=== PATIENT | female | born 1975 | race Caucasian/White ===

== ENCOUNTER → 2017-09-23 | Outpatient (CLI) | payer BC ==
--- NOTE | 2017-09-23 15:51 | US ---
EXAMINATION TYPE: US thyroid st tissue head/neck DATE OF EXAM: 09/23/2017 COMPARISON: NONE CLINICAL HISTORY: I48.9 AFIB,E04.9 nontoxic goiter. Neck swelling GLAND SIZE: Right Lobe: 5.1 x 1.6 x 1.8 cm Overall Parenchyma: heterogenous Left Lobe: 5.1 x 1.6 x 1.8 cm Overall Parenchyma: heterogeneous Isthmus Thickness: 0.4 cm NODULES RIGHT: # of nodules measured on right: 0 LEFT: # of nodules measured on left: 0 ISTHMUS: # of nodules measured in the isthmus: 0 Bilateral neck scanned, no evidence of lymphadenopathy. Prominent, heterogeneous gland with no definite nodules seen at this time. IMPRESSION: No sizable nodules are seen. Tissue does appear to be diffusely heterogeneous and enlarged compatible with goiter. Correlate for thyroiditis.
--- NOTE | 2017-09-23 16:57 | ECHOF ---
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 Resting tachycardia (HR>100bpm). This was a technically difficult study with suboptimal views. The left ventricular size is normal. There is mild concentric left ventricular hypertrophy. Overa ll left ventricular systolic function is normal with, an EF between 55 - 60 %. The right ventricle is normal in size and function. The left atrium is normal in size. The right atrium is normal in size. 1.5mg of Definity was utilized for enhancement of images The aortic valve is trileaflet, and appears structurally normal. No aortic stenosis or regurgitation. The mitral valve leaflets are mildly thickened. Mild mitral regurgitation is present. Trace tricuspid regurgitation present. The right ventricular systolic pressure, as measured by Dopp ler, is 10.92mmHg. The pulmonic valve was not well visualized. The aortic root size is normal. There is no pericardial effusion. CONCLUSIONS -------- 1. Atrial fibrillation. 2. Resting tachycardia (HR>100bpm). 3. This was a technically difficult study with suboptimal views. 4. The left ventricular size is normal. 5. There is mild concentric left ventricular hypertrophy. 6. Overall left ventricular systolic function is normal with, an EF between 55 - 60 %. 7. The left atrium is normal in size. 8. Lumason used 9. The aortic valve is trileaflet, and appears structurally normal. No aortic stenosis or regurgitati on. 10. The mitral valve leaflets are mildly thickened. 11. Mild mitral regurgitation is present. 12. Trace tricuspid regurgitation present. 13. The right ventricular systolic pressure, as measured by Doppler, is 10.92mmHg. 14. The pulmonic valve was not well visualized. 15. The aortic root size is normal. 16. There is no pericardial effusion. WIRE THREADER: Tatum Storm RDCS
== END | disposition home or self-care (01) ==
LOC: RADECHMAIN 14:34
PROVIDERS: ATTEND Family Medicine
DX: I08.1 Rheumatic disorders of both mitral and tricuspid valves (principal); I48.91 Unspecified atrial fibrillation; R00.0 Tachycardia, unspecified; E04.9 Nontoxic goiter, unspecified
CPT/HCPCS: 93306; 76536; Q9950

== ENCOUNTER → 2017-10-25 | Outpatient (CLI) | payer BC ==
[2017-10-25 10:46] LABS: HCT 37.4 % (34.0-46.0); HGB 12.7 gm/dL (11.4-16.0); MCH 29.1 pg (25.0-35.0); MCHC 34.1 g/dL (31.0-37.0); MCV 85.2 fL (80.0-100.0); Mean Platelet Volume 6.7; Platelet Count 379 k/uL (150-450); RBC 4.39 m/uL (3.80-5.40); RDW 13.1 % (11.5-15.5); WBC 10.2 k/uL (3.8-10.6)
[2017-10-25 10:52] LABS: Anion Gap 12 mmol/L; Blood Urea Nitrogen 16 mg/dL (7-17); Calcium 9.4 mg/dL (8.4-10.2); Carbon Dioxide 25 mmol/L (22-30); Chloride 104 mmol/L (98-107); Glucose 189 mg/dL (74-99); Potassium 4.4 mmol/L (3.5-5.1); Sodium 141 mmol/L (137-145)
== END | disposition home or self-care (01) ==
LOC: LABWHC1 09:59
PROVIDERS: ATTEND Internal Medicine Clinical Cardiac Electrophysiology
DX: I48.3 Typical atrial flutter (principal); I10 Essential (primary) hypertension
CPT/HCPCS: 36415; 80048; 85027

== ENCOUNTER 2017-11-09 09:35 | Day surgery (SDC) | payer BC ==
[2017-11-09] MEDS: SODIUM CHLORIDE 0.9% 1,000 ML IV SCH (10:12)
[2017-11-09 10:23] LABS: Glucose,Whole Blood 120 mg/dL (75-99)
[2017-11-09] MEDS ORDERED: LIDOCAINE 1% INJ 10MG/ML (20 ML MDV) ONE (10:33)
[2017-11-09] MEDS ORDERED: PROPOFOL 10 MG/ML 20 ML VIAL IV ONE (10:33)
[2017-11-09] MEDS ORDERED: SUCCINYLCHOLINE CHLORIDE 100 MG/5 ML SYR IV ONE (10:33)
[2017-11-09] MEDS ORDERED: fentaNYL (PF) 50 MCG/ML 2 ML AMP ONE (10:33)
[2017-11-09] MEDS ORDERED: PHENYLEPHRINE-0.9% NACL SYG 1 MG/10 ML SYRINGE ONE (10:33)
[2017-11-09] MEDS ORDERED: MIDAZOLAM 2 MG/2 ML VIAL ONE (10:33)
[2017-11-09] MEDS ORDERED: ROCURONIUM BROMIDE 10 MG/ML 10 ML VIAL IV ONE (10:33)
[2017-11-09] MEDS ORDERED: NEOSTIGMINE 1 MG/ML 10 ML VIAL ONE (10:33)
[2017-11-09] MEDS ORDERED: GLYCOPYRROLATE 0.2 MG/ML 2 ML VIAL ONE (10:33)
[2017-11-09] MEDS ORDERED: ISOPROTERENOL 250 MCG/1.25 ML SYR IV ONE (10:33)
[2017-11-09] MEDS ORDERED: LIDOCAINE 2% INJ 20 MG/ML SQ ONE (11:09)
[2017-11-09] MEDS ORDERED: HEPARIN SODIUM (1,000 UNIT/ML) 1,000 UNIT in SODIUM CHLORIDE 0.9% 1,000 ML IRRIGATION ONE (11:23)
[2017-11-09] MEDS ORDERED: ACETAMINOPHEN IV (For NPO) 1,000 MG in EMPTY BAG 1 BAG IVPB ONE (15:08)
[2017-11-09] MEDS ORDERED: HYDROcodone/APAP 5-325MG 1 EACH TAB PO PRN (15:08)
[2017-11-09] MEDS ORDERED: ACETAMINOPHEN TAB 325 MG TAB PO PRN (15:08)
[2017-11-09] MEDS ORDERED: ACETAMINOPHEN IV (For NPO) 1,000 MG/100 ML VIAL IVPB ONE (15:38)
[2017-11-09] MEDS ORDERED: MORPHINE SULFATE/PF 10MG/10ML VL IVP PRN (16:33)
[2017-11-09] MEDS ORDERED: MORPHINE SULFATE 4 MG/ML SYRINGE ONE (16:36)
--- NOTE | 2017-11-09 17:40 | CE ---
CARDIAC ELECTROPHYSIOLOGY REPORT Gladys Matthews is a 42-year-old female patient of Dr. Carmona who was referred for evaluation and management of atrial flutter. She is appropriately anticoagulated. She underwent a diagnostic EP study and radiofrequency ablation of atrial flutter. Patient was brought to the EP lab in a fasting state. Written informed consent was obtained prior to the procedure. The right and left groins were prepped and draped as per protocol. Venous sheaths were placed in the right and left femoral veins, and via these diagnostic and ablation catheters were placed in the right heart. Intracardiac echo catheter was also placed. The coronary sinus catheter was placed, and this showed concentric activation, cycle length of atrial tachycardia 245 milliseconds consistent with atrial flutter. Mapping and ablation catheters were placed in the right atrial isthmus and entrainment mapping confirmed isthmus dependency and counter-clockwise flutter. Three-dimensional electroanatomic mapping was performed. Intracardiac echo was performed. There was no thrombus in the right atrial appendage or the left atrial appendage. The isthmus was identified. The patient had a very short isthmus with thickened myocardium in the area of the tricuspid anulus and again in the eustachian ridge, and a large localized mid eustachian pouch that was quite deep. This was a short isthmus. RF ablation was performed and apparently a complete line of block was made. Atrial flutter was terminated. Complete block was not achieved. This was a very difficult ablation, and despite ablation within the pouch, which was difficult to enter using the reverse loop technique, poor contact was achieved. Therefore the isthmus pouch was identified along multiple planes and RF ablation line was made to circumvent this pouch. We went around it to complete the line. RF ablation to complete the line of block and achieve bidirectional block took almost 3 hours. Good power and good temperature was achieved, but it took a long time to achieve this on account of: 1. Very thick tissue, short isthmus. 2. A deep mid eustachian pouch. Once bidirectional block was achieved, an EP study was performed on and off Isuprel. The AH interval was 44 milliseconds, HV interval 39 milliseconds. AV node Wenckebach block 310 milliseconds. VA Wenckebach block on Isuprel 390 milliseconds. Sinus node recovery times at 600, 500 and 400 milliseconds were 956, 1064 and 1035 milliseconds. High-dose Isuprel was employed and no other arrhythmia was induced. Please note that during ablation of atrial flutter, we achieved termination followed by re-induction later and then termination once again. We also induced right atrial tachycardia, but this was terminated with a catheter bump along the tricuspid anulus. This appeared to be a tachycardia close to the tricuspid anulus. RESULT: Successful atrial flutter ablation. This was a difficult, long ablation on account of the anatomic factors related to the right atrial isthmus as described above. Simply the ablation process itself took about 3 hours. PLAN: Continue antihypertensive therapy. Continue anticoagulation and watch for development of any other atrial tachycardias, including atrial fibrillation. The patient tolerated the procedure well without any acute complications. MMODL / IJN: [id number] /
[2017-11-09 18:23] VITALS: BMI 52.7
[2017-11-09 18:28] LABS: Glucose,Whole Blood 190 mg/dL (75-99)
[2017-11-09] MEDS: CARVEDILOL 6.25 MG TAB PO SCH (18:41)
[2017-11-09] MEDS: metFORMIN 500 MG TAB PO SCH (18:42)
[2017-11-09] MEDS: VICTOZA 1.8MG SQ SCH (18:43)
[2017-11-09] MEDS: APIXABAN 5 MG TAB PO SCH (19:55)
[2017-11-09 20:15] LABS: Glucose,Whole Blood 170 mg/dL (75-99)
[2017-11-09] MEDS ORDERED: ATORVASTATIN 40 MG TAB PO SCH (21:00)
[2017-11-10 03:56] VITALS: TEMP 98.2
[2017-11-10 06:51] LABS: Glucose,Whole Blood 114 mg/dL (75-99)
[2017-11-10] MEDS: SODIUM CHLORIDE 0.9% 1,000 ML IV SCH (06:58)
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
[2017-11-10 08:02] VITALS: RESP 18
[2017-11-10] MEDS: metFORMIN 500 MG TAB PO SCH (08:28)
[2017-11-10] MEDS: APIXABAN 5 MG TAB PO SCH (08:28)
[2017-11-10] MEDS: CARVEDILOL 6.25 MG TAB PO SCH (08:28)
[2017-11-10] MEDS ORDERED: LISINOPRIL 20 MG TAB PO SCH (09:00)
[2017-11-10] MEDS ORDERED: NON-FORMULARY DRUG (Canagliflozin [Invokana] 300 MG) PO SCH (09:00)
[2017-11-10 11:56] VITALS: BP 115/69; PULSE 83
[2017-11-10 12:10] LABS: Glucose,Whole Blood 153 mg/dL (75-99)
[2017-11-10 12:57] LABS: Hemoglobin A1C 6.9 % (4.0-6.0)
[2017-11-10] MEDS ORDERED: MORPHINE ORAL SOLN 10 MG/5 ML CUP PO PRN (13:17)
[2017-11-10] MEDS: VICTOZA 1.8MG SQ SCH (13:42)
== END 2017-11-10 14:28 | disposition home or self-care (01) ==
LOC: CATHEP 09:35 → 3OBS 14:55 → CATHEP 11-10 14:28
PROVIDERS: ATTEND Internal Medicine Clinical Cardiac Electrophysiology
DX: I48.3 Typical atrial flutter (principal); I10 Essential (primary) hypertension; I48.91 Unspecified atrial fibrillation; Z79.01 Long term (current) use of anticoagulants; E11.9 Type 2 diabetes mellitus without complications; Z79.84 Long term (current) use of oral hypoglycemic drugs; Z68.43 Body mass index [BMI] 50.0-59.9, adult; Z82.49 Family history of ischemic heart disease and other diseases of the circulatory system; Z87.891 Personal history of nicotine dependence; Z79.899 Other long term (current) drug therapy; Z91.041 Radiographic dye allergy status
CPT/HCPCS: 93623; 93662; 93613; 93653; 81025; 83036; C1894; C1769 ×2; C1893 ×2; C1730; C1759; C1732; J2001; J2270 ×2; J1644; J0131

== ENCOUNTER → 2020-03-26 | Outpatient (CLI) | payer BC ==
--- NOTE | 2020-03-26 18:27 | CONS ---
CONSULTATION REASON FOR CONSULTATION: Sleep apnea. Toña was referred to me due to concerns of obstructive sleep apnea. 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 Her disqualification occurred because of seat belt wearing problems rather than sleep. More recently, the patient was treated for atrial fibrillation and she underwent cardiac ablation. She is back to sinus rhythm. She is diabetic and she has hyperlipidemia and she is coming in to be evaluated for sleep apnea. She is obese and she snores, yet she does not have any witnessed apneas. She does not have any nocturia. No gasping for air. No grinding of the teeth. She is not having any restlessness during sleep. She does not sleep talk or walk. No heartburn or chest pain. No palpitation. She goes to bed between midnight and she wakes up at 6 a.m. in the morning. She feels like she is sleeping around 5-6 hours per day. She has never gotten into a car accident because of feeling drowsy or sleepy. She sleeps on her side, occasionally on her back. Her weight has been gradually being lost as the patient used to weigh around 425 pounds around 10 years ago and currently she is in the 300 range. PAST MEDICAL HISTORY: Obesity, diabetes mellitus, hyperlipidemia. PAST SURGICAL HISTORY: Tonsillectomy and adenoidectomy, and EP studies with cardiac ablation for atrial fibrillation. SOCIAL HISTORY: Nonsmoker. No history of alcoholism. No history of IV drugs. She quit smoking 9 years ago. She carries a 50 pack-year smoking history. Does not consume excessive amounts of caffeinated beverages. She drinks 1-2 cups of coffee in the morning. FAMILY HISTORY: Mother has obstructive sleep apnea. Unsure if her father did. MEDICATION HISTORY: The medication includes Eliquis, Invokana, Victoza, metformin, Lipitor, and lisinopril. REVIEW OF SYSTEMS: Fourteen-point review of system was done and the positive findings were mentioned above in history of present illness. No tiredness, no fatigue. No chest pain. No palpitation. No exertional dyspnea. No restlessness overnight. No grinding of the teeth. No morning headaches. No anxiety or panic attacks or nightmares. Denies having any dry mouth. No sleepwalking or sleeptalking. No insomnia. PHYSICAL EXAMINATION: VITAL SIGNS: BP is 131/83, pulse 66, respirations 16, temperature 98.1. Saturation 93% on room air. Height is 5 feet 7 inches, weight is 293. GENERAL APPEARANCE: Appears calm and comfortable. Head atraumatic, normocephalic. NECK: Supple. No JVD. No goiter or neck mass. Mallampati class 1. LUNGS: Clear to auscultation. HEART: Heart sounds are regular rate and rhythm, normal S1, S2. No S3, S4. No murmurs. ABDOMEN: Soft, obese, nontender. No direct tenderness. No rebound tenderness or guarding. EXTREMITIES: No edema, no cyanosis or clubbing. NEUROLOGIC: Awake and alert. There are no focal neurological deficits. IMPRESSION: 1. Snoring. 2. Paroxysmal atrial fibrillation post cardiac ablation, currently in sinus rhythm. 3. Obesity with a current body weight of 293. 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 5. Diabetes mellitus. 6. Hyperlipidemia. PLAN: Will proceed with a home sleep study. Overall clinical suspicion for obstructive sleep apnea is low. Encourage further weight loss. Implement good sleep hygiene measures. We will continue to follow and make further recommendations based on results of the home sleep study. MMODL / IJN: [id number] /
== END | disposition home or self-care (01) ==
LOC: SLEEP 14:39
PROVIDERS: ATTEND Internal Medicine Critical Care Medicine
DX: G47.33 Obstructive sleep apnea (adult) (pediatric) (principal); E11.9 Type 2 diabetes mellitus without complications; E78.5 Hyperlipidemia, unspecified; E66.9 Obesity, unspecified; I48.0 Paroxysmal atrial fibrillation
CPT/HCPCS: 99211

== ENCOUNTER 2020-10-24 17:01 | Emergency (ER) | payer OTHER, BC ==
[2020-10-24 17:18] VITALS: BP 118/73; PULSE 81; RESP 18; TEMP 98
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
== END 2020-10-24 18:51 | disposition home or self-care (01) ==
LOC: EC 17:01
DX: Z04.1 Encounter for examination and observation following transport accident (principal); E11.9 Type 2 diabetes mellitus without complications; E78.5 Hyperlipidemia, unspecified; I10 Essential (primary) hypertension; Z79.01 Long term (current) use of anticoagulants; Z79.84 Long term (current) use of oral hypoglycemic drugs; V89.2XXA Person injured in unspecified motor-vehicle accident, traffic, initial encounter
CPT/HCPCS: 71046; 99283

== ENCOUNTER → 2021-05-01 | Outpatient (CLI) | payer BC | END | disposition home or self-care (01) | LOC: LABWHC1 12:17 | PROVIDERS: ATTEND Obstetrics & Gynecology | DX: N91.2 Amenorrhea, unspecified (principal) | CPT/HCPCS: 36415; 84702 ==

== ENCOUNTER 2022-02-08 04:42 | Emergency (ER) | payer BC, OTHER ==
[2022-02-08 05:31] LABS: Basophils # (A) 0.1 k/uL (0-0.2); Basophils % (A) 1 %; Eosinophils # (A) 0.1 k/uL (0-0.7); Eosinophils % (A) 1 %; HGB 13.7 gm/dL (11.4-16.0); Lymphocytes # (A) 2.4 k/uL (1.0-4.8); Lymphocytes % (A) 20 %; MCHC 32.7 g/dL (31.0-37.0); MCV 88.7 fL (80.0-100.0); Mean Platelet Volume 8.2; Monocytes # (A) 0.9 k/uL (0-1.0); Monocytes % (A) 7 %; Neutrophils # (A) 8.6 k/uL (1.3-7.7); Neutrophils % (A) 70 %; Platelet Count 329 k/uL (150-450); RBC 4.73 m/uL (3.80-5.40); RDW 13.2 % (11.5-15.5); WBC 12.3 k/uL (3.8-10.6)
[2022-02-08 05:40] LABS: ALT 26 U/L (4-34); AST 23 U/L (14-36); African American GFR (CKD) >90 (>60 ml/min/1.73 sqM); Albumin 3.6 g/dL (3.5-5.0); Alkaline Phosphatase 99 U/L (38-126); Amylase 40 U/L (30-110); Anion Gap 8 mmol/L; Blood Urea Nitrogen 13 mg/dL (7-17); Calcium 8.6 mg/dL (8.4-10.2); Carbon Dioxide 22 mmol/L (22-30); Chloride 103 mmol/L (98-107); Glucose 406 mg/dL (74-99); Lipase 157 U/L (23-300); Non-African American GFR(CKD) >90 (>60 ml/min/1.73 sqM); Potassium 4.5 mmol/L (3.5-5.1); Sodium 133 mmol/L (137-145); Total Bilirubin 0.5 mg/dL (0.2-1.3); Total Protein 6.6 g/dL (6.3-8.2)
[2022-02-08] MEDS ORDERED: MAG HYDROX/AL HYDROX/SIMETH 30 ML, HYOSCYAMINE ELIXIR 10 ML, LIDOCAINE VISCOUS 2% 10 ML PO STA ×3 (06:17)
[2022-02-08] MEDS ORDERED: KETOROLAC 15 MG/ML 1 ML VIAL IVP STA (06:17)
[2022-02-08 06:25] LABS: Appearance,Urine Clear (Clear); Bacteria,Urine Rare /hpf; Bilirubin,Urine Negative (Negative); Blood,Urine Negative (Negative); Color,Urine Yellow; Glucose,Urine (UA) 4+ (Negative); Ketones,Urine Negative (Negative); Leukocyte Esterase,Urine Negative (Negative); Mucus,Urine Rare /hpf; Nitrite,Urine Negative (Negative); PH, Urine 5.5 (5.0-8.0); Protein,Urine 1+ (Negative); RBC,Urine 1 /hpf (0-5); Specific Gravity,Urine 1.045 (1.001-1.035); Squamous Epithelial Cell,Urine 7 /hpf (0-4); Urobilinogen,Urine <2.0 mg/dL (<2.0); WBC,Urine 2 /hpf (0-5)
[2022-02-08] MEDS ORDERED: SODIUM CHLORIDE 0.9% 1,000 ML IV ONE (06:41)
[2022-02-08] MEDS ORDERED: INSULIN REGULAR 100 UNIT/ML VIAL (IV) IV ONE (06:41)
[2022-02-08] MEDS ORDERED: SODIUM CHLORIDE 0.9% 500 ML 500 ML IV ONE (06:41)
--- NOTE | 2022-02-08 07:22 | ED ---
Abdominal Pain HPI - General Chief Complaint: Abdominal Pain Stated Complaint: Abdominal pain Time Seen by Provider: 02/08/22 06:04 Source: patient, EMS, RN notes reviewed Mode of arrival: EMS Limitations: no limitations - History of Present Illness Initial Comments: This a 47-year-old female presents emergency Department tingling left upper quadrant abdominal pain. Patient states this started yesterday and gradually worsened overnight. Patient states that hurts in the upper abdomen but denies any significant reflux no chest pain or shortness breath no fevers or chills patient mild nausea without vomitingdiarrhea constipation dysuria hematuria - Related Data Home Medications Medication Instructions Recorded Confirmed Apixaban [Eliquis] 5 mg PO BID 11/04/17 11/09/17 Atorvastatin [Lipitor] 40 mg PO HS 11/04/17 11/09/17 Canagliflozin [Invokana] 300 mg PO DAILY 11/04/17 11/09/17 Cinnamon Bark [Cinnamon] 1,000 mg PO BID 11/04/17 11/09/17 Cranberry 2100 Mg 4,200 mg PO DAILY 11/04/17 Cyanocobalamin (Vitamin B-12) 1,000 mcg PO BID 11/04/17 11/09/17 [Vitamin B-12] Glucosamine 2000 Mg 2,000 mg PO DAILY 11/04/17 Liraglutide [Victoza 2-Gianfranco] 1.8 mg SQ PC-SUPPER 11/04/17 11/09/17 Multivitamins, Thera [Multivitamin 1 each PO DAILY 11/04/17 11/09/17 (formulary)] carvediloL [Coreg] 6.25 mg PO BID 11/04/17 11/09/17 lisinopriL [Zestril] 20 mg PO DAILY 11/04/17 11/09/17 metFORMIN HCL [Glucophage] 1,000 mg PO BID 11/04/17 11/09/17 Allergies Allergy/AdvReac Type Severity Reaction Status Date / Time Iodinated Contrast Media Allergy REDNESS Verified 11/04/17 14:58 [Iodinated Contrast- Oral AND VERY and IV Dye] HOT FEELING Review of Systems ROS Statement: Those systems with pertinent positive or pertinent negative responses have been documented in the HPI. ROS Other: All systems not noted in ROS Statement are negative. Past Medical History Past Medical History: Atrial Flutter, Diabetes Mellitus, Hyperlipidemia, Hypertension History of Any Multi-Drug Resistant Organisms: None Reported Past Surgical History: No Surgical Hx Reported Past Psychological History: No Psychological Hx Reported Smoking Status: Never smoker Past Alcohol Use History: Occasional Past Drug Use History: Marijuana General Exam General appearance: alert, in no apparent distress Head exam: Present: atraumatic, normocephalic, normal inspection Eye exam: Present: normal appearance, PERRL, EOMI. Absent: scleral icterus, conjunctival injection, periorbital swelling ENT exam: Present: normal exam, mucous membranes moist Neck exam: Present: normal inspection. Absent: tenderness, meningismus, lymphadenopathy Respiratory exam: Present: normal lung sounds bilaterally. Absent: respiratory distress, wheezes, rales, rhonchi, stridor Cardiovascular Exam: Present: regular rate, normal rhythm, normal heart sounds. Absent: systolic murmur, diastolic murmur, rubs, gallop, clicks GI/Abdominal exam: Present: soft, tenderness, normal bowel sounds. Absent: distended, guarding, rebound, rigid Back exam: Absent: CVA tenderness (R), CVA tenderness (L) Skin exam: Present: warm, dry, intact, normal color. Absent: rash Course Vital Signs 02/08/22 04:44 Temperature 98.2 F Pulse Rate 102 H Respiratory 20 Rate Blood Pressure 134/99 O2 Sat by Pulse 96 Oximetry Medical Decision Making - Medical Decision Making 47-year-old female presented for left-sided abdominal pain CT shows some attenuation of subcutaneous area the left. It is tender with palpation. Patient may have had some sort of strain. Patient will be discharged with pain control remaining workup is negative for acute findings. - Lab Data Result diagrams: 02/08/22 05:18 02/08/22 05:18 Lab Results 02/08/22 02/08/22 02/08/22 Range/Units 05:18 05:18 05:51 WBC 12.3 H (3.8-10.6) k/uL RBC 4.73 (3.80-5.40) m/uL Hgb 13.7 (11.4-16.0) gm/dL Hct 42.0 (34.0-46.0) % MCV 88.7 (80.0-100.0) fL MCH 29.0 (25.0-35.0) pg MCHC 32.7 (31.0-37.0) g/dL RDW 13.2 (11.5-15.5) % Plt Count 329 (150-450) k/uL MPV 8.2 Neutrophils % 70 % Lymphocytes % 20 % Monocytes % 7 % Eosinophils % 1 % Basophils % 1 % Neutrophils # 8.6 H (1.3-7.7) k/uL Lymphocytes # 2.4 (1.0-4.8) k/uL Monocytes # 0.9 (0-1.0) k/uL Eosinophils # 0.1 (0-0.7) k/uL Basophils # 0.1 (0-0.2) k/uL Sodium 133 L (137-145) mmol/L Potassium 4.5 (3.5-5.1) mmol/L Chloride 103 (98-107) mmol/L Carbon Dioxide 22 (22-30) mmol/L Anion Gap 8 mmol/L BUN 13 (7-17) mg/dL Creatinine 0.55 (0.52-1.04) mg/dL Est GFR (CKD-EPI)AfAm >90 (>60 ml/min/1.73 sqM) Est GFR (CKD-EPI)NonAf >90 (>60 ml/min/1.73 sqM) Glucose 406 H (74-99) mg/dL Calcium 8.6 (8.4-10.2) mg/dL Total Bilirubin 0.5 (0.2-1.3) mg/dL AST 23 (14-36) U/L ALT 26 (4-34) U/L Alkaline Phosphatase 99 (38-126) U/L Total Protein 6.6 (6.3-8.2) g/dL Albumin 3.6 (3.5-5.0) g/dL Amylase 40 (30-110) U/L Lipase 157 (23-300) U/L Urine Color Yellow Urine Appearance Clear (Clear) Urine pH 5.5 (5.0-8.0) Ur Specific [place] 1.045 H (1.001-1.035) Urine Protein 1+ H (Negative) Urine Glucose (UA) 4+ H (Negative) Urine Ketones Negative (Negative) Urine Blood Negative (Negative) Urine Nitrite Negative (Negative) Urine Bilirubin Negative (Negative) Urine Urobilinogen <2.0 (<2.0) mg/dL Ur Leukocyte Esterase Negative (Negative) Urine RBC 1 (0-5) /hpf Urine WBC 2 (0-5) /hpf Ur Squamous Epith Cells 7 H (0-4) /hpf Urine Bacteria Rare H (None) /hpf Urine Mucus Rare H (None) /hpf Urine HCG, Qual (Not Detectd) 02/08/22 Range/Units 05:51 WBC (3.8-10.6) k/uL RBC (3.80-5.40) m/uL Hgb (11.4-16.0) gm/dL Hct (34.0-46.0) % MCV (80.0-100.0) fL MCH (25.0-35.0) pg MCHC (31.0-37.0) g/dL RDW (11.5-15.5) % Plt Count (150-450) k/uL MPV Neutrophils % % Lymphocytes % % Monocytes % % Eosinophils % % Basophils % % Neutrophils # (1.3-7.7) k/uL Lymphocytes # (1.0-4.8) k/uL Monocytes # (0-1.0) k/uL Eosinophils # (0-0.7) k/uL Basophils # (0-0.2) k/uL Sodium (137-145) mmol/L Potassium (3.5-5.1) mmol/L Chloride (98-107) mmol/L Carbon Dioxide (22-30) mmol/L Anion Gap mmol/L BUN (7-17) mg/dL Creatinine (0.52-1.04) mg/dL Est GFR (CKD-EPI)AfAm (>60 ml/min/1.73 sqM) Est GFR (CKD-EPI)NonAf (>60 ml/min/1.73 sqM) Glucose (74-99) mg/dL Calcium (8.4-10.2) mg/dL Total Bilirubin (0.2-1.3) mg/dL AST (14-36) U/L ALT (4-34) U/L Alkaline Phosphatase (38-126) U/L Total Protein (6.3-8.2) g/dL Albumin (3.5-5.0) g/dL Amylase (30-110) U/L Lipase (23-300) U/L Urine Color Urine Appearance (Clear) Urine pH (5.0-8.0) Ur Specific [place] (1.001-1.035) Urine Protein (Negative) Urine Glucose (UA) (Negative) Urine Ketones (Negative) Urine Blood (Negative) Urine Nitrite (Negative) Urine Bilirubin (Negative) Urine Urobilinogen (<2.0) mg/dL Ur Leukocyte Esterase (Negative) Urine RBC (0-5) /hpf Urine WBC (0-5) /hpf Ur Squamous Epith Cells (0-4) /hpf Urine Bacteria (None) /hpf Urine Mucus (None) /hpf Urine HCG, Qual Not Detected (Not Detectd) Disposition Clinical Impression: Abdominal wall strain Disposition: HOME SELF-CARE Condition: Stable Instructions (If sedation given, give patient instructions): Abdominal Pain (ED) Additional Instructions: Please return to the Emergency Department if symptoms worsen or any other concerns. Is patient prescribed a controlled substance at d/c from ED?: No Referrals: None,Stated [Primary Care Provider] - 1-2 days Time of Disposition: 07:43
--- NOTE | 2022-02-08 07:36 | CT ---
EXAMINATION TYPE: CT abdomen pelvis wo con DATE OF EXAM: 02/08/2022 COMPARISON: None HISTORY: Left sided abdominal pain. CT DLP: 1842.4 mGycm Examination of the solid and hollow viscera is limited given the lack of contrast. FINDINGS: LUNG BASES: No evidence for nodule. No evidence for infiltrate. LIVER/GB: The gallbladder appears to be surgically absent. No space-occupying hepatic lesion. PANCREAS: No pancreatic mass identified. No inflammatory process seen. SPLEEN: No evidence for splenomegaly. No intrasplenic lesions seen. ADRENALS: No adrenal nodules identified. No evidence for thickening. KIDNEYS: No evidence for renal mass. No nephrolithiasis. No hydronephrosis. BOWEL: Appendix has a normal appearance. No evidence of bowel obstruction. No inflammatory process. Lymph nodes: No evidence for adenopathy greater than 1 cm. Abdominal aorta: Atheromatous changes seen. No evidence for aneurysm. Genital organs: No significant abnormality. Other: Subcutaneous increased attenuation left upper quadrant extending from images 36 through 49. Th is could reflect posttraumatic change. Correlate clinically. Small fat-containing umbilical hernia. IMPRESSION: 1. Subcutaneous increased attenuation left upper quadrant extending from images 36 through 49. This could reflect posttraumatic change. Correlate clinically. 2. Otherwise unremarkable study.
[2022-02-08] MEDS ORDERED: ACET/COD 300 MG/30 MG STARTER PACK 6 TAB BTL PO STA (07:44)
[2022-02-08 07:56] VITALS: BP 102/72; PULSE 99; RESP 16; TEMP 97.5
== END 2022-02-08 08:02 | disposition home or self-care (01) ==
LOC: EC 04:42
DX: S39.011A Strain of muscle, fascia and tendon of abdomen, initial encounter (principal); E11.9 Type 2 diabetes mellitus without complications; E78.5 Hyperlipidemia, unspecified; Z91.041 Radiographic dye allergy status; X58.XXXA Exposure to other specified factors, initial encounter
CPT/HCPCS: 99284; 96374; 96375; 96361; 36415; 80053; 82150; 83690; 85025; 81001; 81025; 74176; J1885